=== PATIENT | female | born 1960 | race African-American/Black ===

== ENCOUNTER 2018-08-31 05:22 | Inpatient (IN) | payer MEDICAID ==
[~2018-08-31] VITALS: Ht 175.3 cm; Wt 68.9 kg
[2018-08-31] VITALS (7 sets, daily range): BP systolic 130–161; BP diastolic 74–89
[2018-08-31] MEDS ORDERED: ONDANSETRON HCL 4MG/2ML INJ IV STA (06:19)
[2018-08-31] MEDS ORDERED: MORPHINE SULFATE 4 MG/ML CPJ (NOT FOR IM USE) IV STA (06:19)
[2018-08-31 06:30] LABS: CHLORIDE 111 mEq/L (98-107)
[2018-08-31 06:32] LABS: INR 1.3; PARTIAL THROMBOPLASTIN TIME 26.6 sec (23.4-31.0)
[2018-08-31 06:35] LABS: ETHANOL BLOOD < 10 mg/dL
[2018-08-31] MEDS ORDERED: MORPHINE SULFATE 10 MG/ML CPJ IV STA (06:37)
[2018-08-31 06:41] LABS: CREATINE KINASE 201 IU/L (26-192)
[2018-08-31 06:49] LABS: BASOPHILS % 0.5 % (0.0-2.0); EOSINOPHILS % 0.3 % (0.0-5.0); HEMATOCRIT. 31.2 % (36.0-48.0); HEMOGLOBIN. 9.8 g/dL (12.0-16.0); LYMPHOCYTES % 26.8 % (20.0-50.0); MEAN CORPUSCULAR HEMOGLOBIN 30.9 pg (28.0-32.0); MEAN CORPUSCULAR VOLUME 98.6 fL (81.0-99.0); MEAN PLATELET VOLUME 7.7 fl (7.4-10.4); MONOCYTES % 5.8 % (2.0-8.0); NEUTROPHILS % 66.6 % (40.0-76.0); PLATELET 215 x1000/uL (130-400); RED BLOOD CELL COUNT 3.17 mill/uL (4.2-5.4); RED CELL DISTRIBUTION WIDTH 14.1 % (11.6-14.6)
[2018-08-31] MEDS ORDERED: DEXTROSE 50% WATER 50ML SYRINGE IV ONE ×2 (06:59→07:00)
[2018-08-31] MEDS ORDERED: DEXT 10% WATER 1,000 ML IV ONE (07:30)
[2018-08-31] MEDS ORDERED: DEXTROSE 50% WATER 50ML SYRINGE IV PRN ×2 (10:15)
[2018-08-31] MEDS: DEXT 10% WATER 1,000 ML IV SCH (10:33)
[2018-08-31 10:49] LABS: PHOSPHORUS 3.6 mg/dL (2.5-4.9)
[2018-08-31] MEDS ORDERED: BLOOD SUGAR DIAGNOSTIC STRIP TEST SCH (11:50)
[2018-08-31] MEDS ORDERED: INSULIN LISPRO 100 UNITS/ML SUBCUT SCH (12:20)
[2018-08-31] MEDS ORDERED: HYDR-4134 MT (13:52)
[2018-08-31] MEDS ORDERED: METO-539 MT (13:52)
[2018-08-31] MEDS ORDERED: CALC0.253 MT (13:52)
[2018-08-31] MEDS ORDERED: AMLO10TA80 MT (13:52)
[2018-08-31] MEDS: CLONIDINE 0.1MG TABLET PO PRN (14:26)
[2018-08-31] MEDS ORDERED: ENOXAPARIN 60MG/0.6ML SYR SUBCUT SCH (16:00)
[2018-08-31] MEDS ORDERED: ONDANSETRON HCL 4MG/2ML INJ IV PRN (16:30)
[2018-08-31] MEDS ORDERED: HEPARIN 25,000 UNITS PREMIX 500 ML IV SCH ×2 (16:30→18:00)
[2018-08-31] MEDS ORDERED: HEPARIN 80 UNITS/KG BOLUS IV NR (16:54)
[2018-08-31] MEDS: BLOOD SUGAR DIAGNOSTIC STRIP TEST SCH ×2 (17:00→21:00)
[2018-08-31] MEDS: INSULIN LISPRO 100 UNITS/ML SUBCUT SCH ×2 (17:00→21:00)
[2018-08-31] MEDS ORDERED: HEPARIN BOLUS PRN aPTT <36 IV (18:00)
[2018-08-31] MEDS ORDERED: HEPARIN BOLUS PRN aPTT 37-44 IV (18:00)
[2018-08-31] MEDS: DILTIAZEM HCL 30MG TABLET PO SCH (18:15)
[2018-09-01] VITALS (12 sets, daily range): BP systolic 131–161; BP diastolic 66–89
[2018-09-01] MEDS: DILTIAZEM HCL 30MG TABLET PO SCH ×4 (00:27→23:49)
[2018-09-01] MEDS: INSULIN LISPRO 100 UNITS/ML SUBCUT SCH ×6 (00:27→20:31)
[2018-09-01] MEDS: BLOOD SUGAR DIAGNOSTIC STRIP TEST SCH ×6 (00:27→20:31)
[2018-09-01] MEDS: DEXT 10% WATER 1,000 ML IV SCH (05:20)
[2018-09-01 05:41] LABS: CLARITY URINE TURBID (CLEAR); COLOR URINE YELLOW (YELLOW); KETONES URINE NEGATIVE (NEGATIVE); LEUKOCYTE ESTERASE URINE 3+ (NEGATIVE); NITRITE URINE NEGATIVE (NEGATIVE); OCCULT BLOOD URINE 2+ (NEGATIVE); PH URINE 5.5 (4.5-8.0); PROTEIN URINE 2+ (NEGATIVE); SPECIFIC GRAVITY URINE 1.006 (1.005-1.030); UROBILINOGEN URINE 0.2 E.U./dL (0.2-1.0)
[2018-09-01 06:32] LABS: *AMPHETAMINES SCREEN URINE NEGATIVE (NEGATIVE); *BARBITURATES SCREEN URINE NEGATIVE (NEGATIVE); *BENZODIAZEPINES SCREEN URINE NEGATIVE (NEGATIVE); *COCAINE SCREEN URINE NEGATIVE (NEGATIVE)
[2018-09-01 06:33] LABS: CANNABINOID URINE SCREEN NEGATIVE (NEGATIVE); METHADONE URINE SCREEN NEGATIVE (NEGATIVE); OPIATES URINE SCREEN NEGATIVE (NEGATIVE); PHENCYCLIDINE URINE SCREEN NEGATIVE (NEGATIVE)
[2018-09-01 09:04] LABS: BASOPHILS % 0.2 % (0.0-2.0); EOSINOPHILS % 1.5 % (0.0-5.0); HEMATOCRIT. 28.1 % (36.0-48.0); HEMOGLOBIN. 9.1 g/dL (12.0-16.0); LYMPHOCYTES % 21.9 % (20.0-50.0); MEAN CORPUSCULAR VOLUME 95.3 fL (81.0-99.0); MEAN PLATELET VOLUME 7.7 fl (7.4-10.4); MONOCYTES % 6.2 % (2.0-8.0); NEUTROPHILS % 70.2 % (40.0-76.0); PLATELET 192 x1000/uL (130-400); RED BLOOD CELL COUNT 2.95 mill/uL (4.2-5.4); RED CELL DISTRIBUTION WIDTH 13.5 % (11.6-14.6)
[2018-09-01] MEDS ORDERED: CEFTRIAXONE 1,000 MG in DEXTROSE 5% WATER 50 ML IV SCH (16:00)
[2018-09-01 16:13] LABS: FOLIC ACID (FOLATE) SERUM 15.9 ng/mL (>5.38)
[2018-09-01] MEDS: FOLIC ACID/VITAMIN B COMP W-C TABLET PO SCH (16:37)
[2018-09-01] MEDS: CARVEDILOL 6.25 MG TABLET PO SCH (20:28)
[2018-09-02] VITALS (12 sets, daily range): BP systolic 145–180; BP diastolic 80–101
[2018-09-02] MEDS: BLOOD SUGAR DIAGNOSTIC STRIP TEST SCH ×6 (00:05→21:00)
[2018-09-02] MEDS: INSULIN LISPRO 100 UNITS/ML SUBCUT SCH ×6 (00:06→21:00)
[2018-09-02] MEDS: DILTIAZEM HCL 30MG TABLET PO SCH (06:13)
[2018-09-02 07:05] LABS: BASOPHILS % 0.3 % (0.0-2.0); EOSINOPHILS % 4.4 % (0.0-5.0); HEMATOCRIT. 26.9 % (36.0-48.0); HEMOGLOBIN. 8.8 g/dL (12.0-16.0); LYMPHOCYTES % 28.9 % (20.0-50.0); MEAN CORPUSCULAR HEMOGLOBIN 31.4 pg (28.0-32.0); MEAN CORPUSCULAR VOLUME 95.7 fL (81.0-99.0); MEAN PLATELET VOLUME 7.8 fl (7.4-10.4); MONOCYTES % 7.9 % (2.0-8.0); NEUTROPHILS % 58.5 % (40.0-76.0); PLATELET 188 x1000/uL (130-400); RED BLOOD CELL COUNT 2.81 mill/uL (4.2-5.4); RED CELL DISTRIBUTION WIDTH 13.6 % (11.6-14.6)
[2018-09-02] MEDS: ENOXAPARIN 80MG/0.8ML SYR SUBCUT SCH (09:00)
[2018-09-02] MEDS: FOLIC ACID/VITAMIN B COMP W-C TABLET PO SCH (09:00)
[2018-09-02] MEDS: CARVEDILOL 6.25 MG TABLET PO SCH (09:02)
[2018-09-02] MEDS: CLONIDINE 0.1MG TABLET PO PRN ×2 (14:46→22:11)
[2018-09-02] MEDS: DILTIAZEM HCL 120MG CAPSULE CD 24HR PO SCH (14:51)
[2018-09-02] MEDS: CEFTRIAXONE 1 G PREMIX 50 ML IV SCH (16:10)
[2018-09-02] MEDS: CARVEDILOL 12.5MG TABLET PO SCH (21:18)
[2018-09-02] MEDS: EPOETIN ALFA 10000UNITS/ML VIAL SUBCUT SCH (21:19)
[2018-09-03] VITALS (16 sets, daily range): BP systolic 129–171; BP diastolic 62–95
[2018-09-03] MEDS: INSULIN LISPRO 100 UNITS/ML SUBCUT SCH ×5 (00:35→20:56)
[2018-09-03] MEDS: BLOOD SUGAR DIAGNOSTIC STRIP TEST SCH ×5 (00:35→20:56)
[2018-09-03 07:12] LABS: BASOPHILS % 0.5 % (0.0-2.0); EOSINOPHILS % 5.8 % (0.0-5.0); HEMATOCRIT. 24.2 % (36.0-48.0); HEMOGLOBIN. 8.1 g/dL (12.0-16.0); LYMPHOCYTES % 33.1 % (20.0-50.0); MEAN CORPUSCULAR HEMOGLOBIN 31.6 pg (28.0-32.0); MEAN CORPUSCULAR VOLUME 94.7 fL (81.0-99.0); MEAN PLATELET VOLUME 7.8 fl (7.4-10.4); MONOCYTES % 12.1 % (2.0-8.0); NEUTROPHILS % 48.5 % (40.0-76.0); PLATELET 156 x1000/uL (130-400); RED BLOOD CELL COUNT 2.56 mill/uL (4.2-5.4)
[2018-09-03] MEDS ORDERED: DEXTROSE 50% WATER 50ML SYRINGE IV PRN (09:15)
[2018-09-03] MEDS: DILTIAZEM HCL 120MG CAPSULE CD 24HR PO SCH (09:29)
[2018-09-03] MEDS: CARVEDILOL 12.5MG TABLET PO SCH (09:30)
[2018-09-03] MEDS: FOLIC ACID/VITAMIN B COMP W-C TABLET PO SCH (09:30)
[2018-09-03] MEDS: ENOXAPARIN 80MG/0.8ML SYR SUBCUT SCH (09:31)
[2018-09-03 13:06] LABS: C-PEPTIDE 5.2 ng/mL (1.1-4.4); FOLICLE STIMULATING HORMONE 139.3 mIU/mL (.); INSULIN 9.8 uIU/mL (2.6-24.9)
[2018-09-03] MEDS: CEFTRIAXONE 1 G PREMIX 50 ML IV SCH (17:10)
[2018-09-03] MEDS: CARVEDILOL 25MG TABLET PO SCH (20:57)
[2018-09-04] VITALS (16 sets, daily range): BP systolic 138–178; BP diastolic 78–102
[2018-09-04] MEDS: BLOOD SUGAR DIAGNOSTIC STRIP TEST SCH ×4 (06:50→21:39)
[2018-09-04] MEDS: INSULIN LISPRO 100 UNITS/ML SUBCUT SCH ×4 (07:12→21:00)
[2018-09-04 07:21] LABS: BASOPHILS % 0.7 % (0.0-2.0); EOSINOPHILS % 6.4 % (0.0-5.0); HEMATOCRIT. 24.7 % (36.0-48.0); HEMOGLOBIN. 8.3 g/dL (12.0-16.0); LYMPHOCYTES % 33.4 % (20.0-50.0); MEAN CORPUSCULAR HEMOGLOBIN 31.8 pg (28.0-32.0); MEAN CORPUSCULAR VOLUME 94.4 fL (81.0-99.0); MEAN PLATELET VOLUME 7.9 fl (7.4-10.4); NEUTROPHILS % 46.5 % (40.0-76.0); PLATELET 158 x1000/uL (130-400); RED BLOOD CELL COUNT 2.62 mill/uL (4.2-5.4); RED CELL DISTRIBUTION WIDTH 13.2 % (11.6-14.6)
[2018-09-04] MEDS: ENOXAPARIN 80MG/0.8ML SYR SUBCUT SCH (08:17)
[2018-09-04] MEDS: CARVEDILOL 25MG TABLET PO SCH ×2 (08:18→21:38)
[2018-09-04] MEDS: FOLIC ACID/VITAMIN B COMP W-C TABLET PO SCH (08:18)
[2018-09-04] MEDS: DILTIAZEM HCL 120MG CAPSULE CD 24HR PO SCH (08:18)
[2018-09-04 09:55] LABS: INR 1.1; PROTHROMBIN TIME 10.8 sec (9.1-11.1)
[2018-09-04] MEDS: CEFTRIAXONE 1 G PREMIX 50 ML IV SCH (16:51)
[2018-09-04] MEDS: EPOETIN ALFA 10000UNITS/ML VIAL SUBCUT SCH (21:38)
[2018-09-04] MEDS: CLONIDINE 0.1MG TABLET PO PRN (23:32)
[2018-09-05] VITALS (19 sets, daily range): BP systolic 136–177; BP diastolic 71–98
[2018-09-05 04:18] LABS: DRVVT LA 33.3 sec (0.0-47.0); LUPUS ANTICOAG INTERPRETATION Comment: (.); PTT-LA 37.8 sec (0.0-51.9)
[2018-09-05 07:05] LABS: INR 1.1; PROTHROMBIN TIME 10.8 sec (9.1-11.1)
[2018-09-05 07:12] LABS: HEMATOCRIT. 24.9 % (36.0-48.0); HEMOGLOBIN. 8.2 g/dL (12.0-16.0); MEAN CORPUSCULAR HEMOGLOBIN 31.2 pg (28.0-32.0); MEAN CORPUSCULAR VOLUME 94.7 fL (81.0-99.0); MEAN PLATELET VOLUME 7.8 fl (7.4-10.4); PLATELET 165 x1000/uL (130-400); RED BLOOD CELL COUNT 2.63 mill/uL (4.2-5.4); RED CELL DISTRIBUTION WIDTH 13.2 % (11.6-14.6)
[2018-09-05] MEDS: BLOOD SUGAR DIAGNOSTIC STRIP TEST SCH ×4 (07:15→20:28)
[2018-09-05] MEDS: INSULIN LISPRO 100 UNITS/ML SUBCUT SCH ×4 (07:15→20:27)
[2018-09-05] MEDS: DILTIAZEM HCL 120MG CAPSULE CD 24HR PO SCH (08:11)
[2018-09-05] MEDS: FOLIC ACID/VITAMIN B COMP W-C TABLET PO SCH (08:11)
[2018-09-05] MEDS: CARVEDILOL 25MG TABLET PO SCH ×2 (08:12→20:24)
[2018-09-05 09:50] LABS: PLATELET ESTIMATE NORMAL
[2018-09-05 13:06] LABS: ANTI-CARDIOLIPIN AB IGA < 9 APL U/mL (0-11); ANTI-CARDIOLIPIN AB IGG < 9 GPL U/mL (0-14); ANTI-CARDIOLIPIN AB IGM 10 MPL U/mL (0-12)
[2018-09-05] MEDS ORDERED: IODIXANOL 320MG/ML 100 ML BOTTLE IV ONE (13:54)
[2018-09-05] MEDS ORDERED: LIDOCAINE HCL 1% 20ML VIAL (Pyxis) INJ ONE (13:54)
[2018-09-05] MEDS ORDERED: SODIUM BICARBONATE 4% (2.4MEQ) 5ML VIAL IV ONE (13:54)
[2018-09-05] MEDS: CEFTRIAXONE 1 G PREMIX 50 ML IV SCH (16:01)
[2018-09-05] MEDS: HYDRALAZINE HCL 25MG TABLET PO SCH (20:23)
[2018-09-06] VITALS (12 sets, daily range): BP systolic 127–143; BP diastolic 68–109
[2018-09-06] MEDS ORDERED: MORPHINE SULFATE 10 MG/ML CPJ IV STA (01:28)
[2018-09-06] MEDS ORDERED: MORPHINE SULFATE 10 MG/ML CPJ IV SCH (01:30)
[2018-09-06] MEDS: INSULIN LISPRO 100 UNITS/ML SUBCUT SCH ×2 (07:00→11:27)
[2018-09-06] MEDS: BLOOD SUGAR DIAGNOSTIC STRIP TEST SCH ×2 (07:00→11:27)
[2018-09-06 07:33] LABS: BASOPHILS % 0.8 % (0.0-2.0); EOSINOPHILS % 5.1 % (0.0-5.0); HEMATOCRIT. 23.8 % (36.0-48.0); LYMPHOCYTES % 35.8 % (20.0-50.0); MEAN CORPUSCULAR HEMOGLOBIN 32.1 pg (28.0-32.0); MEAN CORPUSCULAR VOLUME 95.4 fL (81.0-99.0); MEAN PLATELET VOLUME 7.5 fl (7.4-10.4); MONOCYTES % 14.5 % (2.0-8.0); NEUTROPHILS % 43.8 % (40.0-76.0); PLATELET 175 x1000/uL (130-400); RED BLOOD CELL COUNT 2.49 mill/uL (4.2-5.4); RED CELL DISTRIBUTION WIDTH 13.1 % (11.6-14.6)
[2018-09-06] MEDS: CARVEDILOL 25MG TABLET PO SCH (08:05)
[2018-09-06] MEDS: FOLIC ACID/VITAMIN B COMP W-C TABLET PO SCH (08:06)
[2018-09-06] MEDS: DILTIAZEM HCL 120MG CAPSULE CD 24HR PO SCH (08:06)
[2018-09-06] MEDS: HYDRALAZINE HCL 25MG TABLET PO SCH (08:06)
[2018-09-06] MEDS ORDERED: COR25 PO (10:19)
[2018-09-06] MEDS ORDERED: NEPVIT PO (10:19)
[2018-09-06] MEDS ORDERED: DILT120C88 PO (10:19)
[2018-09-06] MEDS ORDERED: HYDRALAZINE HCL 50MG TABLET PO SCH (21:00)
== END 2018-09-06 15:20 | disposition home or self-care (01) | DRG 197 ==
LOC: ER 05:22 → EDBEDREQ 06:22 → 3WST 07:31 → EDBEDREQSVC 07:39 → EDBEDREQ 07:39 → ENRESERV 07:48 → UNDOADMIN 08:52 → 3WST 08:52
PROVIDERS: ADMIT Internal Medicine; ATTEND Internal Medicine
PROC: 06H03DZ Insertion of Intraluminal Device into Inferior Vena Cava, Percutaneous Approach (ICD-10-PCS; principal; 2018-09-05)
PROC: B5191ZZ Fluoroscopy of Inferior Vena Cava using Low Osmolar Contrast (ICD-10-PCS; 2018-09-05)
DX: I82.432 Acute embolism and thrombosis of left popliteal vein (principal); I13.2 Hypertensive heart and chronic kidney disease with heart failure and with stage 5 chronic kidney disease, or end stage renal disease; G93.41 Metabolic encephalopathy; N17.9 Acute kidney failure, unspecified; D68.62 Lupus anticoagulant syndrome; N18.6 End stage renal disease; K86.1 Other chronic pancreatitis; E11.22 Type 2 diabetes mellitus with diabetic chronic kidney disease; I50.23 Acute on chronic systolic (congestive) heart failure; M94.0 Chondrocostal junction syndrome [Tietze]; M32.9 Systemic lupus erythematosus, unspecified; E87.2 Acidosis; R00.0 Tachycardia, unspecified; I08.3 Combined rheumatic disorders of mitral, aortic and tricuspid valves; I42.9 Cardiomyopathy, unspecified; E11.649 Type 2 diabetes mellitus with hypoglycemia without coma; D64.9 Anemia, unspecified; N39.0 Urinary tract infection, site not specified; I27.20 Pulmonary hypertension, unspecified; R76.8 Other specified abnormal immunological findings in serum; Z79.01 Long term (current) use of anticoagulants; Z79.82 Long term (current) use of aspirin; Z86.73 Personal history of transient ischemic attack (TIA), and cerebral infarction without residual deficits; Z95.5 Presence of coronary angioplasty implant and graft; I25.2 Old myocardial infarction; Z88.2 Allergy status to sulfonamides; Z86.711 Personal history of pulmonary embolism
CPT/HCPCS: 36415; 37191; 71045; 76770; 78582; 80048; 80061; 80305; 82533; 82550; 82607; 82746; 82947; 82962; 83001; 83002; 83036; 83525; 83735; 83880; 84100; 84134; 84443; 84484; 84681; 85613; 85732; 86038; 86147; 87077; 87186; 93005; 93306; 93970; 96361; 96374; 99285; A9558; C1769; C1880; G0482; J0696; J0885; J1644; J1650; J1815; J2270; J2405; J3490; J7050; J7060; Q9967